=== PATIENT | female | born 1995 | race Caucasian/White ===

== ENCOUNTER 2018-09-23 03:17 | Emergency (ER) | payer BC ==
[2018-09-23] MEDS ORDERED: Ondansetron PF 4 MG/2 ML Vial ONE (03:39)
[2018-09-23] MEDS ORDERED: diphenhydrAMINE 50 MG/ML VIAL ONE (03:39)
[2018-09-23] MEDS ORDERED: methylPREDNISolone Sod Succ/PF 125 MG/2 ML VIAL ONE (03:39)
[2018-09-23] MEDS ORDERED: Famotidine/PF 20 mg/2ml Vial ONE (03:39)
== END 2018-09-23 05:21 | disposition home or self-care (01) ==
LOC: ERS 03:17
DX: L50.0 Allergic urticaria (principal); Z79.899 Other long term (current) drug therapy
CPT/HCPCS: 93005; 96374; 96375; J1200; J2405; J2930; S0028